=== PATIENT | male | born 1960 | race African-American/Black ===

== ENCOUNTER 2018-05-10 14:00 | Emergency (ER) | payer OTHER ==
--- NOTE | 2018-05-10 15:07 | RAD ---
RADIOGRAPH CHEST 1 VIEW: Date: 05/10/18 Time: 1438 HOURS HISTORY: 57-year-old male with cough. COMPARISON: None available. FINDINGS: There is a small right pleural effusion or pleural thickening. There is a smaller left pleural effusi on or pleural thickening at the left base. There are mild streaky, plate-like densities throughout th e right lower lung zone, probably representing pulmonary scarring and/or subsegmental atelectasis. Th e right upper lobe and the left lung are grossly clear. Cardiomediastinal silhouette is within normal limits. No pulmonary edema, or pneumothorax. IMPRESSION: 1. Small bilateral pleural effusions versus bilateral pleural thickening (right greater than left). 2. Mild to moderate chronic, probably changes in the right lower lung zone. 3. No definite acute pulmonary findings. JN [] POS: CECILY
[2018-05-10 15:48] LABS: #Basophils 0.1 thou/uL (0.0-0.2); #Eosinphils 0.1 thou/uL (0.0-0.7); #Monocytes 0.3 thou/uL (0.11-0.59); %Basophils 1.7 % (0.0-1.0); %Eosinophils 4.1 % (0.0-10.0); %Lymphocytes 27.8 % (21.0-51.0); %Monocytes 7.3 % (0.0-10.0); %Neutrophils 59.1 % (42.0-75.0); Hemoglobin 10.9 g/dL (14.0-18.0); Mean Corpuscular HGB CONC 32.9 g/dL (32.0-36.0); Mean Corpuscular Hemoglobin 28.6 pg (27.0-31.0); Mean Corpuscular Volume 87.1 fL (78.0-98.0); Mean Platelet Volume 5.7 fL (7.4-10.4); Platelet Count 356 thou/uL (130-400); RBC Distribution Width 12.3 % (11.5-14.5); Red Blood Cell (RBC) Count 3.81 mill/uL (4.70-6.10); White Blood Cell (WBC) Count 3.4 thou/uL (4.8-10.8)
[2018-05-10 16:08] LABS: ALT (SGPT) 18 U/L (8-55); AST (SGOT) 26 U/L (5-34); Albumin 3.6 g/dL (3.5-5.0); Alkaline Phosphatase 105 U/L (40-150); Anion Gap 14 mmol/L (10-20); BUN (Urea Nitrogen) 7 mg/dL (8.4-25.7); Bilirubin, Total 0.3 mg/dL (0.2-1.2); Calc. Creatinine Clearance 0 mL/min (70-130); Calcium 8.9 mg/dL (7.8-10.44); Carbon Dioxide 20 mmol/L (22-29); Chloride 107 mmol/L (98-107); Estimated GFR-MDRD Greater than 90; Globulin 3.8 g/dL (2.4-3.5); Glucose 91 mg/dL (70-105); Potassium 3.8 mmol/L (3.5-5.1); Protein, Total 7.4 g/dL (6.0-8.3); Sodium 137 mmol/L (136-145)
== END 2018-05-10 18:33 | disposition still patient (30) ==
LOC: ERS 14:00
DX: J90 Pleural effusion, not elsewhere classified (principal); B19.20 Unspecified viral hepatitis C without hepatic coma; I10 Essential (primary) hypertension; M19.90 Unspecified osteoarthritis, unspecified site; M06.9 Rheumatoid arthritis, unspecified; Z79.899 Other long term (current) drug therapy
CPT/HCPCS: 36415; 71045; 80053; 83605; 85025; 87040